=== PATIENT | male | born 1950 | race Caucasian/White ===

== ENCOUNTER → 2017-11-07 | Outpatient (CLI) | payer MEDICARE ==
[~2017-11-07] MED LIST: ASPIRIN 32325 MG/TAB PO; CARAFATE 1GM1 G PO; NEURONTIN300 MG/CAP; NEURONTIN600 MG/TAB PO; NIASPAN750 MG PO; NITROSTAT0.4 MG/TAB SL; PAIN CREAM; PERCOCET 325 MG1 TA2 PO; PROTONIX 40MG T40 MG PO; SAVELLA50 MG; VALIUM 5MG T5 MG/TAB PO; VITAMIN B-1000 MCG/T PO; VITAMIN B121000 MC2 PO; VITAMIN D31000 IU PO; WELLBUTRIN 100100 MG PO
== END ==
LOC: COL.RAD 08:19
DX: M65.331 Trigger finger, right middle finger (principal)
CPT/HCPCS: J3301; Q9967